=== PATIENT | male | born 2000 | race Caucasian/White ===

== ENCOUNTER 2024-10-02 14:00 | Outpatient (REF) | payer OTHER, SELFPAY ==
--- NOTE | ~2024-10-02 | XR_ITS ---
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 TECHNIQUE: Four views of the left knee. FINDINGS: Opacity in the suprapatellar bursa joint. No acute cortical disruption or malalignment. No lytic or blastic lesions. No subcutaneous emphysema. XR/XR knee LT 4V IMPRESSION: Suprapatellar bursa joint effusion. Electronically signed by: Chino Mendez MD 10/03/2024 08:25 AM [facility]
== END 2024-10-02 14:01 | disposition home or self-care (01) ==
LOC: HO.XRAY 14:00
PROVIDERS: PCP Internal Medicine; Visit Provider Internal Medicine
DX: C81.11 Nodular sclerosis Hodgkin lymphoma, lymph nodes of head, face, and neck (principal); M25.562 Pain in left knee
CPT/HCPCS: 73564

== ENCOUNTER → 2024-10-02 14:09 | Outpatient (BNV) | payer OTHER, SELFPAY | PROVIDERS: PCP Internal Medicine; Visit Provider Radiology Diagnostic Radiology | DX: M25.462 Effusion, left knee (principal) | CPT/HCPCS: 73564 ==

== ENCOUNTER 2024-11-07 10:16 | Outpatient (REF) | payer OTHER, SELFPAY ==
--- OUTSIDE RECORDS SUMMARY | 2024-11-10 10:25 | XMS_ITS ---
Author Name [facility] Organization Unknown History of Medication Use Medication Directions Dispensed Refills Start Date End Date Stat us predniSONE (DELTASONE) 50 mg tablet Take 1 tablet (50 mg total) by mouth daily for 7 days. Take with food. 09/18/2024 11/11/9999 active Problems Problem Status Onset Date Problem Type Date of Resoluti on Source Acute pain of left knee active EncounterDiagnosisAct CT_YAL [facility]
== END 2024-11-07 10:17 | disposition home or self-care (01) ==
LOC: HO.HOSX 10:16
PROVIDERS: Visit Provider Physician Assistant
DX: Z13.89 Encounter for screening for other disorder (principal)